=== PATIENT | male | born 1955 ===

== ENCOUNTER 2024-01-28 11:36 | Emergency (ER) | payer OTHER, SELFPAY ==
--- NOTE | 2024-01-28 | XR_ITS ---
Patient: MAILE MAGANA Facility:?[facility] RIS Patient ID:?[id number] Site Patient ID:?[id number] Site :?02/03/1956 Study:?XRay-Chest PORTABLE-01/28/2024 12:00:06 PM Ordering Physician:?DR. KEARNEY Final Report: INDICATION: CP. STEMI. (Sic) COMPARISON: None available. TECHNIQUE: 1 view. FINDINGS: Medical Devices: Percutaneous pacing pads overlie the mediastinum. There is a small bore single-lumen catheter overlying the midline of the mediastinum directed cephalad, coursing to the right of midline near its terminus. Lung Volumes: Adequate inspiration. No significant atelectasis. Lungs: Clear lungs. Pleura and Pleural spaces: No significant pleural effusion. No pneumothorax. Mediastinum: Normal cardiomediastinal silhouette. Bony Thorax and Soft Tissues: No significant incidental findings. Plate and screw fixation of the cervical spine is noted incidentally. IMPRESSION: Clear lungs and pleural spaces. Normal heart and mediastinum. Incidental findings described above. Dictated by Willis Henderson MD @ 01/28/2024 12:43:44 PM Signed by:?Willis Henderson MD @01/28/2024 12:43:44 PM (Electronic Signature)
[2024-01-28] MEDS: ASPIRIN 81 MG TAB.CHEW 324 MG PO (11:40)
[2024-01-28] MEDS: NITROGLYCERIN 0.4 MG TAB.SUBL SUBLINGUAL (11:42)
[2024-01-28 11:43] VITALS: O2SAT 100
[2024-01-28] MEDS: 0.9 % SODIUM CHLORIDE 1000 ml 1,000 ML IV (11:45)
[2024-01-28] MEDS: NITROGLYCERIN/DEXTROSE 25,000 MCG/250 ML BOTTLE 3 MCG IVPB (11:50)
[2024-01-28 11:51] VITALS: BP 145/106; PULSE 79; RESP 28; TEMP 36.1; O2SAT 99; BMI 19.6
[2024-01-28] MEDS: ONDANSETRON 2 MG/ML inj 4 MG IVP (11:53)
[2024-01-28] MEDS: MORPHINE 4 MG/ML INJ IVP (11:54)
[2024-01-28 11:59] LABS: Lactate* 3.1 mmol/L (0.5-1.9)
[2024-01-28] MEDS: HEPARIN 5,000 UNIT/0.5 ML INJ 4000 UNIT IVP (12:03)
[2024-01-28 12:04] LABS: Basophils Absolute Auto 0.07 K/uL (0.00-0.30); Basophils Percent Auto 0.8 % (0.0-3.0); Eosinophils Absolute Auto 0.23 K/uL (0.00-0.50); Eosinophils Percent Auto 2.8 % (0.0-7.0); Hematocrit 45.2 % (37.0-53.0); Hemoglobin* 15.2 gm/dL (13.5-17.5); Immature Granulocytes Abs Auto 0.01 K/uL (0.00-0.30); Immature Granulocytes Pct Auto 0.1 %; Lymphocytes Absolute Auto 3.34 K/uL (0.90-2.90); Lymphocytes Percent Auto 40.3 % (20-44); Mean Corpuscular HGB Conc 34 gm/dL (32-36); Mean Corpuscular Hemoglobin 31 pg (26-34); Mean Corpuscular Volume 92 fL (80-100); Monocytes Percent Auto 10.6 % (0.0-11.0); Neutrophils Absolute Auto 3.76 K/uL (1.7-7.0); Neutrophils Percent Auto 45.4 % (42.0-72.0); Platelet Count* 284 K/uL (140-440); RDW Coefficient of Variation % 12.3 % (11.5-15.5); Red Blood Count 4.92 m/uL (4.30-5.90); White Blood Count* 8.29 K/uL (4.50-11.00)
[2024-01-28] MEDS: TICAGRELOR 90 MG TABLET 180 MG PO (12:05)
[2024-01-28 12:06] LABS: Slide Review Reflex No
[2024-01-28] MEDS: HEPARIN 25,000 UNIT/500 ML BAG 0.3 UNIT IV (12:06)
--- NOTE | 2024-01-28 12:08 | ED.GENADULT ---
HPI - General Adult General Chief complaint: Chest Pain Stated complaint: heart attack Time Seen by Provider: 01/28/24 11:42 Source: patient Mode of arrival: ambulatory Limitations: no limitations History of Present Illness HPI narrative: Patient is a 68-year-old male coming in today complaining of chest pain. Pain started approximately 5-1/2 hours prior to presenting to the ER. Pain is substernal radiates down to the left arm. Causes him to feel short of breath. He complains of feeling lightheaded and diaphoretic. Patient states that he does not take any medications. Past medical history significant for appendectomy and a recent hernia repair 3 weeks ago. Patient does smoke. Related Data Allergies Allergy/AdvReac Type Severity Reaction Status Date / Time No Known Drug Allergies Allergy Verified 01/28/24 11:51 Review of Systems Status of ROS: Reports: 10 or more systems reviewed and unremarkable except as noted in History and below [facility] Social History Smoking Status: Former smoker How often do you have a drink containing alcohol: never How many standard drinks containing alcohol do you have on a typical day: 1 or 2 AUDIT-C Alcohol total score: 0 Non-prescribed substance use: denies use Exam Narrative: Exam Narrative: Thin, well-developed patient in moderate distress. Alert and oriented x3. Answers questions appropriately. Is acutely short of breath and tachypneic. HEENT: Normocephalic atraumatic. Pupils are equally round reactive to light. Extraocular muscles are intact. Conjunctivae are moist without any icterus noted. Moist mucous membranes. Cardiovascular: Heart is regular rate and rhythm S1 and S2 are present without any murmurs. Lungs: Clear to auscultation bilaterally no wheezes rhonchi or rales are appreciated. Patient takes deep breaths without any discomfort. Cannot reproduce his pain on palpation. Abdomen: Soft and nontender nondistended with normal bowel sounds. Extremities: Bilateral lower extremities are without edema. Skin: Well perfused, clammy. Const: Vital Signs, click to edit/add: Vital Signs - 24 hr 01/28/24 11:43 01/28/24 11:51 Temperature 96.9 F L Pulse Rate [Pulse Oximeter] 79 Respiratory Rate 28 H Blood Pressure [Le ft Forearm] 145/106 H Pulse Oximetry 100 99 Oxygen Delivery Me thod Room Air Course Course ED Course: EKG, read by me, shows ST-elevation DE with ST elevations in leads 2, 3, and AVF. Two IVs are established. Labs were drawn. Patient is given oral aspirin, sublingual nitro, Brilinta. IV heparin and IV nitroglycerin are started as well as normal saline. Blood pressure remained stable ranging from 116-145 systolic. Pulse remains in the 70s. Patient is given IV morphine. His pain is slightly improved but still certainly present. During this time we have already called and spoken to [facility] who accept the patient as a direct transfer to the pharmacy laboratory technician. Transportation is contacted and patient will be flown by air transport. This all accomplished by 31 minutes since arrival, will be another 15 minutes until the air transport arrives. Portable chest was done, read by me, does not show any acute pathology. CBC unremarkable, lactate elevated at 3.1. Remainder of labs pending. Air transport arrived exactly the 15 minute naveen and patient transferred in guarded condition to [facility], straight to the pharmacy laboratory technician. Vital Signs Vital signs: Initial Vital Signs Respiratory Effort Normal 01/28/24 11:43 Respiratory Depth Normal 01/28/24 11:43 Respiratory Pattern Normal 01/28/24 11:43 Pulse Oximetry 100 01/28/24 11:43 Vital Signs Pulse Oximetry 100 01/28/24 11:43 Temperature 96.9 F L 01/28/24 11:51 Pulse Rate 79 01/28/24 11:51 Respiratory Rate 28 H 01/28/24 11:51 Blood Pressure 145/106 H 01/28/24 11:51 Pulse Oximetry 99 01/28/24 11:51 Oxygen Delivery Method Room Air 01/28/24 11:51 Medications Administered Medications: Generic Name Dose Route Start Last Admin Trade Name Freq PRN Reason Stop Dose Admin Heparin Sodium/Dextrose 25,000 unit in 500 mls @ 0 mls/hr 01/28/24 11:45 01/28/24 12:06 Heparin IV 15 unit/hr .Q0M DOM 0.3 mls/hr Administration Protocol Per Protocol Nitroglycerin/Dextrose 25,000 mcg in 250 mls @ 3 mls/hr 01/28/24 11:45 01/28/24 12:14 Nitroglycerin/Dextrose IVPB 10 mcg/min .TITRATE PRN 6 mls/hr Infusion 5 MCG/MIN Sodium Chloride 1,000 mls @ 1,000 mls/hr 01/28/24 12:00 01/28/24 11:45 0.9 % Sodium Chloride 1000 Ml IV 01/28/24 12:59 1,000 mls/hr .Q1H DOM Administration Ondansetron HCl 4 mg 01/28/24 11:51 01/28/24 11:53 Ondansetron 2 Mg/Ml Inj IVP 4 mg ONCE PRN Administration Discontinued Medications Generic Name Dose Route Start Last Admin Trade Name Freq PRN Reason Stop Dose Admin Aspirin 324 mg 01/28/24 11:46 01/28/24 11:40 Aspirin 81 Mg Tab.Chew PO 01/28/24 11:47 324 mg ONCE ONE Administration Heparin Sodium (Porcine) 4,000 unit 01/28/24 11:43 01/28/24 12:03 Heparin 5,000 Unit/0.5 Ml Inj IVP 01/28/24 11:44 4,000 unit ONCE ONE Administration Morphine Sulfate 4 mg 01/28/24 11:51 01/28/24 11:54 Morphine 4 Mg/Ml Inj IVP 01/28/24 11:52 4 mg ONCE ONE Administration Nitroglycerin 0.4 mg 01/28/24 11:45 01/28/24 11:42 Nitroglycerin 0.4 Mg Tab.Subl SUBLINGUAL 01/28/24 11:46 0.4 mg ONCE ONE Administration Ticagrelor 180 mg 01/28/24 11:57 01/28/24 12:05 Ticagrelor 90 Mg Tablet PO 01/28/24 11:58 180 mg ONCE ONE Administration Medical Decision Making [facility] Narrative Medical decision making narrative: ST-elevation DE. Patient transferred for further care Lab Data Lab results reviewed: Yes I reviewed the patient's lab results Labs: Lab Results 01/28/24 01/28/24 01/28/24 Range/Units 11:54 11:54 11:54 WBC 8.29 Cancelled (4.50-11.00) K/uL RBC 4.92 Cancelled (4.30-5.90) m/uL Hgb 15.2 (13.5-17.5) gm/dL Hct (37.0-53.0) % MCV (80-100) fL MCH (26-34) pg MCHC (32-36) gm/dL RDW Coeff of Ben (11.5-15.5) % Plt Count (140-440) K/uL Neut % (Auto) (42.0-72.0) % Lymph % (Auto) (20-44) % Marshall % (Auto) (0.0-11.0) % Eos % (Auto) (0.0-7.0) % Baso % (Auto) (0.0-3.0) % Neut # (Auto) (1.7-7.0) K/uL Lymph # (Auto) (0.90-2.90) K/uL Marshall # (Auto) (0.00-0.90) K/UL Eos # (Auto) (0.00-0.50) K/uL Baso # (Auto) (0.00-0.30) K/uL Abs Immat Gran (auto) (0.00-0.30) K/uL Imm/Tot Granulo (auto) % INR APTT (23-33) Seconds Sodium (135-149) mmol/L Potassium (3.6-5.1) mmol/L Chloride (96-114) mmol/L Carbon Dioxide (20-32) mmol/L Anion Gap (7-15) mEq/L BUN (7-30) mg/dL Creatinine (0.5-1.5) mg/dL Estimated Creat Clear Estimated GFR ml/min Glucose (60-115) mg/dL Lactate (0.5-1.9) mmol/L Calcium (8.4-10.6) mg/dL Magnesium (1.5-2.6) mg/dL Total Bilirubin (0.1-1.5) mg/dL Direct Bilirubin (0.0-0.5) mg/dL AST (12-35) U/L ALT (4-50) U/L Alkaline Phosphatase (40-150) U/L Troponin I (0.01-0.04) ng/mL Total Protein (6.0-8.3) g/dL Albumin (3.3-5.0) g/dL 01/28/24 01/28/24 01/28/24 Range/Units 11:54 11:54 11:54 WBC (4.50-11.00) K/uL RBC (4.30-5.90) m/uL Hgb Cancelled (13.5-17.5) gm/dL Hct 45.2 Cancelled (37.0-53.0) % MCV 92 Cancelled (80-100) fL MCH 31 (26-34) pg MCHC (32-36) gm/dL RDW Coeff of Ben (11.5-15.5) % Plt Count (140-440) K/uL Neut % (Auto) (42.0-72.0) % Lymph % (Auto) (20-44) % Marshall % (Auto) (0.0-11.0) % Eos % (Auto) (0.0-7.0) % Baso % (Auto) (0.0-3.0) % Neut # (Auto) (1.7-7.0) K/uL Lymph # (Auto) (0.90-2.90) K/uL Marshall # (Auto) (0.00-0.90) K/UL Eos # (Auto) (0.00-0.50) K/uL Baso # (Auto) (0.00-0.30) K/uL Abs Immat Gran (auto) (0.00-0.30) K/uL Imm/Tot Granulo (auto) % INR APTT (23-33) Seconds Sodium (135-149) mmol/L Potassium (3.6-5.1) mmol/L Chloride (96-114) mmol/L Carbon Dioxide (20-32) mmol/L Anion Gap (7-15) mEq/L BUN (7-30) mg/dL Creatinine (0.5-1.5) mg/dL Estimated Creat Clear Estimated GFR ml/min Glucose (60-115) mg/dL Lactate (0.5-1.9) mmol/L Calcium (8.4-10.6) mg/dL Magnesium (1.5-2.6) mg/dL Total Bilirubin (0.1-1.5) mg/dL Direct Bilirubin (0.0-0.5) mg/dL AST (12-35) U/L ALT (4-50) U/L Alkaline Phosphatase (40-150) U/L Troponin I (0.01-0.04) ng/mL Total Protein (6.0-8.3) g/dL Albumin (3.3-5.0) g/dL 01/28/24 01/28/24 01/28/24 Range/Units 11:54 11:54 11:54 WBC (4.50-11.00) K/uL RBC (4.30-5.90) m/uL Hgb (13.5-17.5) gm/dL Hct (37.0-53.0) % MCV (80-100) fL MCH Cancelled (26-34) pg MCHC 34 Cancelled (32-36) gm/dL RDW Coeff of Ben 12.3 (11.5-15.5) % Plt Count 284 Cancelled (140-440) K/uL Neut % (Auto) 45.4 (42.0-72.0) % Lymph % (Auto) 40.3 (20-44) % Marshall % (Auto) 10.6 (0.0-11.0) % Eos % (Auto) 2.8 (0.0-7.0) % Baso % (Auto) 0.8 (0.0-3.0) % Neut # (Auto) 3.76 (1.7-7.0) K/uL Lymph # (Auto) 3.34 H (0.90-2.90) K/uL Marshall # (Auto) 0.90 (0.00-0.90) K/UL Eos # (Auto) 0.23 (0.00-0.50) K/uL Baso # (Auto) 0.07 (0.00-0.30) K/uL Abs Immat Gran (auto) 0.01 (0.00-0.30) K/uL Imm/Tot Granulo (auto) 0.1 % INR Cancelled APTT (23-33) Seconds Sodium (135-149) mmol/L Potassium (3.6-5.1) mmol/L Chloride (96-114) mmol/L Carbon Dioxide (20-32) mmol/L Anion Gap (7-15) mEq/L BUN (7-30) mg/dL Creatinine (0.5-1.5) mg/dL Estimated Creat Clear Estimated GFR ml/min Glucose (60-115) mg/dL Lactate (0.5-1.9) mmol/L Calcium (8.4-10.6) mg/dL Magnesium (1.5-2.6) mg/dL Total Bilirubin (0.1-1.5) mg/dL Direct Bilirubin (0.0-0.5) mg/dL AST (12-35) U/L ALT (4-50) U/L Alkaline Phosphatase (40-150) U/L Troponin I (0.01-0.04) ng/mL Total Protein (6.0-8.3) g/dL Albumin (3.3-5.0) g/dL 01/28/24 Range/Units 11:54 WBC (4.50-11.00) K/uL RBC (4.30-5.90) m/uL Hgb (13.5-17.5) gm/dL Hct (37.0-53.0) % MCV (80-100) fL MCH (26-34) pg MCHC (32-36) gm/dL RDW Coeff of Ben (11.5-15.5) % Plt Count (140-440) K/uL Neut % (Auto) (42.0-72.0) % Lymph % (Auto) (20-44) % Marshall % (Auto) (0.0-11.0) % Eos % (Auto) (0.0-7.0) % Baso % (Auto) (0.0-3.0) % Neut # (Auto) (1.7-7.0) K/uL Lymph # (Auto) (0.90-2.90) K/uL Marshall # (Auto) (0.00-0.90) K/UL Eos # (Auto) (0.00-0.50) K/uL Baso # (Auto) (0.00-0.30) K/uL Abs Immat Gran (auto) (0.00-0.30) K/uL Imm/Tot Granulo (auto) % INR 0.87 L APTT 29 (23-33) Seconds Sodium 138 (135-149) mmol/L Potassium 3.8 (3.6-5.1) mmol/L Chloride 107 (96-114) mmol/L Carbon Dioxide 21 (20-32) mmol/L Anion Gap 10 (7-15) mEq/L BUN 16 (7-30) mg/dL Creatinine 1.0 (0.5-1.5) mg/dL Estimated Creat Clear 75.88 Estimated GFR 82 ml/min Glucose 131 H (60-115) mg/dL Lactate 3.1 H (0.5-1.9) mmol/L Calcium 10.1 (8.4-10.6) mg/dL Magnesium 2.0 (1.5-2.6) mg/dL Total Bilirubin 1.0 (0.1-1.5) mg/dL Direct Bilirubin 0.1 (0.0-0.5) mg/dL AST 26 (12-35) U/L ALT 19 (4-50) U/L Alkaline Phosphatase 67 (40-150) U/L Troponin I < 0.01 L (0.01-0.04) ng/mL Total Protein 8.2 (6.0-8.3) g/dL Albumin 4.8 (3.3-5.0) g/dL ECG Data Attestation: I personally reviewed and interpreted this ECG as follows: Discharge Plan Discharge Clinical Impression: ST elevation myocardial infarction (STEMI) Patient Disposition: [facility] Condition: Guarded Stand Alone Forms: MyHealth Info Instructions
[2024-01-28 12:13] LABS: Albumin* 4.8 g/dL (3.3-5.0)
[2024-01-28 12:14] LABS: Chloride* 107 mmol/L (96-114); Potassium* 3.8 mmol/L (3.6-5.1); Sodium* 138 mmol/L (135-149)
[2024-01-28 12:15] LABS: INR 0.87 (0.91-1.10); Prothrombin Time 12.4 Seconds
[2024-01-28 12:16] LABS: Anion Gap 10 mEq/L (7-15); Aspartate Amino Transferase* 26 U/L (12-35); Bilirubin Direct* 0.1 mg/dL (0.0-0.5); Carbon Dioxide* 21 mmol/L (20-32); Est. Creatinine Clearance* 75.88; Estimated Glomerular Filt Rate 82 ml/min; Partial Thromboplastin Time* 29 Seconds (23-33); Total Protein* 8.2 g/dL (6.0-8.3)
[2024-01-28 12:17] LABS: Alanine Aminotransferase* 19 U/L (4-50); Alkaline Phosphatase* 67 U/L (40-150); Blood Urea Nitrogen* 16 mg/dL (7-30); Calcium* 10.1 mg/dL (8.4-10.6); Glucose* 131 mg/dL (60-115)
[2024-01-28 12:29] LABS: Troponin I* < 0.01 ng/mL (0.01-0.04)
== END 2024-01-28 14:09 | disposition short-term general hospital (02) ==
PROVIDERS: Emergency Provider Family Medicine
DX: I21.3 ST elevation (STEMI) myocardial infarction of unspecified site (principal)
CPT/HCPCS: 36415; 71045; 80048; 80076; 83605; 83735; 84484; 85025; 85027; 85610; 85730; 93005; 94761; 96365; 96375; 99285; 99291; A9270; J1644; J2270; J2405; J7030